=== PATIENT | male | born 2000 | race Caucasian/White ===

== ENCOUNTER 2021-09-15 15:45 | Emergency (ER) | payer OTHER ==
[~2021-09-15] VITALS: Ht 185.4 cm; Wt 68.1 kg
[2021-09-15 15:46] VITALS: BP 132/69
[2021-09-15] MEDS ORDERED: IBUPROFEN 800 MG TAB PO ONE (16:05)
[2021-09-15] MEDS ORDERED: CLINDAMYCIN 900 MG in IV 1 EA IV ONE (16:15)
[2021-09-15] MEDS ORDERED: dexameTHASONE 20MG/5ML VIAL (J1100 PER 1MG) IV ONE (16:15)
[2021-09-15] MEDS ORDERED: NS 1,000 ML IV ONE (16:15)
[2021-09-15 16:28] LABS: HEMATOCRIT 46.9 % (42.0-52.0); HEMOGLOBIN 15.8 g/dl (13.5-17.5); MEAN CORPUSCULAR HEMOGLOBIN 29.5 pg (27.0-33.0); MEAN CORPUSCULAR HGB CONC 33.7 g/dl (32.0-36.5); MEAN CORPUSCULAR VOLUME 87.5 fl (80.0-96.0); PLATELET COUNT, AUTOMATED 165 10^3/uL (150-450); RED BLOOD COUNT 5.36 10^6/uL (4.30-6.10); WHITE BLOOD COUNT 19.7 10^3/uL (4.0-10.0)
[2021-09-15] MEDS ORDERED: ISOVUE-370 76% 100ML VIAL As Ordered ONE (16:43)
[2021-09-15 16:56] LABS: NEUTROPHILS 31 % (28-66)
[2021-09-15 16:57] LABS: ATYPICAL LYMPH 28 % (0-5); LYMPHOCYTES 30 % (16-44)
[2021-09-15 16:58] LABS: PLATELET ESTIMATE NORMAL (NORMAL)
[2021-09-15 17:57] LABS: MONO SCRN POSITIVE (NEGATIVE)
--- NOTE | 2021-09-15 18:05 | REPVR ---
PROCEDURE INFORMATION: Exam: CT Neck With Contrast Exam date and time: 09/15/2021 5:19 PM Age: 20 years old Clinical indication: Throat pain; Patient HX: Right sided neck pain; Additional info: Severe tonsillitis R/O abscess TECHNIQUE: Imaging protocol: Computed tomography images of the neck with contrast. Radiation optimization: All CT scans at this facility use at least one of these dose optimization techniques: automated exposure control; mA and/or kV adjustment per patient size (includes targeted exams where dose is matched to clinical indication); or iterative reconstruction. Contrast material: ISOVUE 370; Contrast volume: 75 ml; Contrast route: INTRAVENOUS (IV); COMPARISON: No relevant prior studies available. FINDINGS: Nasopharynx: Unremarkable. Oropharynx: Bilateral palatine tonsillar hypertrophy, with generalized hypoattenuation bilaterally suggesting tonsillar edema. Bilateral palatine tonsillar hypertrophy, with a mild striped enhancement pattern Hypopharynx: Unremarkable. Larynx: Unremarkable. Normal epiglottis. Retropharyngeal space: Unremarkable. Submandibular/Parotid glands: Normal. Glands are normal in size. Thyroid: Normal. No enlarged or calcified nodules. Lymph nodes: Left level 2 lymph node measuring 15.4 mm short axis. Right level 4 lymph node measuring 19.3 mm short axis. Left level 5A lymph node measuring 7.8 mm short axis. Right level 5A lymph node measuring 7.6 mm short axis. Left posterior submandibular lymph node measuring 7.2 mm short axis. Right level 3 lymph node measuring 5.5 mm short axis. Left level 3 lymph node measuring 7.2 mm short axis. Trachea: Visualized trachea is unremarkable. Lungs: Unremarkable as visualized. Bones/joints: Unremarkable. No acute fracture. Soft tissues: Unremarkable. No significant soft tissue swelling. IMPRESSION: 1. Bilateral severe palatine tonsillar tonsillitis. Abscess is not specifically identified. 2. Mild bilateral upper cervical lymphadenopathy. Electronically signed by: Glen Kevin On 09/15/2021 18:05:12 PM
[2021-09-15] MEDS ORDERED: PRED20TA PO (18:29)
== END 2021-09-15 18:44 | disposition home or self-care (01) ==
LOC: M ED 15:45
DX: J03.90 Acute tonsillitis, unspecified (principal); B27.90 Infectious mononucleosis, unspecified without complication
CPT/HCPCS: 36415; 70491; 80047; 85025; 86308; 87430; 96365; 96366; 96375; 99284; J1100; Q9967